=== PATIENT | male | born 1955 | race Caucasian/White ===

== ENCOUNTER → 2021-07-30 | Day surgery (SDC) | payer MEDICARE, OTHER ==
[~2021-07-30] VITALS: Ht 175.3 cm; Wt 75.3 kg
[~2021-07-30] MED LIST: CARBIDOPA-LEVO1 EAC1 PO; CARBIDOPA-LEVO1 EAC6 PO; CLOPIDOGREL75 MG PO; DONEPEZIL HCL10 MG PO; FIBER PO; GLIPIZIDE PO; GLIPIZIDE XL2.5 MG PO; HYDROCODON-ACE1 EAC1 PO; HYDROCODON-ACE1 EAC2 PO; JARDIANCE10 MG PO; JARDIANCE25 MG PO; LISINOPRIL5 MG PO; MELOXICAM15 MG PO; METFORMIN HCL500 M1 PO; MIRTAZAPINE15 MG PO; QUETIAPINE FUMA50 MG PO; REMERON15 MG PO; ROSUVASTATIN CA20 MG PO; ZESTRIL5 MG PO
== END | disposition home or self-care (01) ==
LOC: FAS 12:27
DX: E11.36 Type 2 diabetes mellitus with diabetic cataract (principal); H26.9 Unspecified cataract; G31.83 Neurocognitive disorder with Lewy bodies; F02.80 Dementia in other diseases classified elsewhere, unspecified severity, without behavioral disturbance, psychotic disturbance, mood disturbance, and anxiety; I10 Essential (primary) hypertension; E78.5 Hyperlipidemia, unspecified; G47.30 Sleep apnea, unspecified; Z86.73 Personal history of transient ischemic attack (TIA), and cerebral infarction without residual deficits; Z88.1 Allergy status to other antibiotic agents; Z79.02 Long term (current) use of antithrombotics/antiplatelets; Z79.84 Long term (current) use of oral hypoglycemic drugs; Z79.899 Other long term (current) drug therapy
CPT/HCPCS: J2001; J2370; J3370; V2632

== ENCOUNTER → 2021-09-03 | Day surgery (SDC) | payer MEDICARE, OTHER ==
[~2021-09-03] VITALS: Ht 175.3 cm; Wt 75.3 kg
[~2021-09-03] MED LIST changes: +[UNRECOGNIZED DRUG - OTHER]
== END | disposition home or self-care (01) ==
LOC: FAS 12:55
DX: E11.36 Type 2 diabetes mellitus with diabetic cataract (principal); H25.813 Combined forms of age-related cataract, bilateral; E11.65 Type 2 diabetes mellitus with hyperglycemia; I10 Essential (primary) hypertension; E78.00 Pure hypercholesterolemia, unspecified; M19.90 Unspecified osteoarthritis, unspecified site; Z79.84 Long term (current) use of oral hypoglycemic drugs; Z79.899 Other long term (current) drug therapy; Z86.73 Personal history of transient ischemic attack (TIA), and cerebral infarction without residual deficits; Z88.8 Allergy status to other drugs, medicaments and biological substances
CPT/HCPCS: V2632

== ENCOUNTER 2021-11-16 11:47 | Emergency (ER) | payer MEDICARE, OTHER ==
[2021-11-16 12:51] LABS: BASOPHIL 0.6 % (0-2); HCT 41.6 % (42.0-52.0); HGB 13.5 g/dl (13.2-18.0); LYMPHOCYTE 9.6 % (15-48); MCH 29.9 pg (25.0-31.0); MCHC 32.5 g/dL (32.0-36.0); MONOCYTE 7.7 % (0-12); NEUTROPHIL 80.5 % (41-80); NRBC 0; PLT 205 K/uL (150-400); RBC 4.52 M/uL (4.70-6.00); RDW 12.8 % (11.5-14.0); WBC 5.1 K/uL (4.0-10.5)
[2021-11-16 13:02] LABS: CREATININE 1.29 mg/dL (0.67-1.17); POTASSIUM 3.8 mmol/L (3.5-5.1)
== END 2021-11-16 14:49 | disposition home or self-care (01) ==
LOC: FER 11:47
PROVIDERS: Nurse Practitioner Family
DX: E11.649 Type 2 diabetes mellitus with hypoglycemia without coma (principal); I10 Essential (primary) hypertension; F03.90 Unspecified dementia, unspecified severity, without behavioral disturbance, psychotic disturbance, mood disturbance, and anxiety
CPT/HCPCS: 36415; 80048; 85025

== ENCOUNTER 2021-11-17 09:27 | Day surgery (SDCO) | payer MEDICARE, OTHER ==
[~2021-11-17] VITALS: Ht 172.7 cm; Wt 66.4 kg
[2021-11-17 11:38] LABS: BILIRUBIN NEGATIVE (NEGATIVE); BLOOD 2+ Ery/uL (NEGATIVE); CLARITY CLEAR (CLEAR); COLOR YELLOW (YELLOW); GLUCOSE (U) 3+ mg/dL (NORMAL); LEUKOCYTES NEGATIVE Leu/uL (NEGATIVE); NITRITE NEGATIVE (NEGATIVE); PROTEIN 1+ mg/dL (NEGATIVE)
[2021-11-17 11:43] LABS: AMPHETAMINES NEGATIVE (NEGATIVE); BARBITURATES NEGATIVE (NEGATIVE); ECSTASY (MDMA) NEGATIVE (NEGATIVE); MARIJUANA (THC) NEGATIVE (NEGATIVE); METHADONE NEGATIVE (NEGATIVE); OPIATES NEGATIVE (NEGATIVE); OXYCODONE NEGATIVE (NEGATIVE)
[2021-11-17 11:49] LABS: BASOPHIL 0.7 % (0-2); EOSINOPHIL 1.6 % (0-7); HCT 43.8 % (42.0-52.0); HGB 14.1 g/dl (13.2-18.0); LYMPHOCYTE 17.5 % (15-48); MCH 29.8 pg (25.0-31.0); MCHC 32.2 g/dL (32.0-36.0); MCV 92.6 fL (78.0-100.0); MONOCYTE 8.5 % (0-12); MPV 10.4 fL (6.0-9.5); NEUTROPHIL 71.2 % (41-80); NRBC 0; PLT 167 K/uL (150-400); RBC 4.73 M/uL (4.70-6.00); RDW 12.6 % (11.5-14.0); WBC 4.4 K/uL (4.0-10.5)
[2021-11-17 12:08] LABS: ALBUMIN 4.2 g/dL (3.4-5.0); ALKALINE PHOSHATASE 62 U/L (46-116); ALT 13 U/L (16-63); AST 16 U/L (15-37); BILIRUBIN - TOTAL 0.7 mg/dL (0.2-1.0); BUN 27 mg/dL (7-18); CHLORIDE 103 mmol/L (98-107); CO2 (BICARBONATE) 27 mmol/L (21-32); CREATININE 1.23 mg/dL (0.67-1.17); GLOBULIN (CALCULATION) 3.2 g/dL; GLUCOSE 99 mg/dL (74-106); POTASSIUM 3.7 mmol/L (3.5-5.1); TOTAL PROTEIN 7.4 g/dL (6.4-8.2)
[2021-11-17 12:19] LABS: SQUAMOUS EPITHELIAL CELLS RARE
[2021-11-17 12:31] LABS: ACETAMINOPHEN (TYLENOL) < 2.0 ug/mL (10.0-30.0)
[2021-11-17 12:36] LABS: CORONAVIRUS 2019 SARS-COV-2 NEGATIVE (NEGATIVE); INFLUENZA A NAA NEGATIVE (NEGATIVE)
[2021-11-17 13:17] LABS: LACTIC ACID 1.9 mmol/L (0.4-1.9)
[2021-11-18] MEDS ORDERED: CARBIDOPA-LEVO1 EAC6 PO (14:10)
[2021-11-18] MEDS ORDERED: MEMANTINE HCL5 MG PO (14:18)
[2021-11-18] MEDS ORDERED: HYDROCODON-ACE1 EAC2 PO (14:20)
[2021-11-19 06:14] LABS: BASOPHIL 0.6 % (0-2); EOSINOPHIL 1.9 % (0-7); HCT 34.9 % (42.0-52.0); HGB 11.4 g/dl (13.2-18.0); LYMPHOCYTE 19.8 % (15-48); MCH 29.5 pg (25.0-31.0); MCHC 32.7 g/dL (32.0-36.0); MCV 90.4 fL (78.0-100.0); MONOCYTE 10.7 % (0-12); NEUTROPHIL 66.1 % (41-80); NRBC 0; PLT 148 K/uL (150-400); RBC 3.86 M/uL (4.70-6.00); RDW 12.4 % (11.5-14.0); WBC 3.2 K/uL (4.0-10.5)
[2021-11-19 06:37] LABS: BUN/CREAT RATIO (CALC) 19.7 RATIO; CREATININE 1.37 mg/dL (0.67-1.17); POTASSIUM 3.7 mmol/L (3.5-5.1)
== END 2021-11-19 11:51 ==
LOC: FER 09:27 → FMS 17:44
PROVIDERS: Emergency Medicine; Hospitalist; ADMIT Internal Medicine
DX: G20 Parkinson's disease (principal); F02.80 Dementia in other diseases classified elsewhere, unspecified severity, without behavioral disturbance, psychotic disturbance, mood disturbance, and anxiety; E11.649 Type 2 diabetes mellitus with hypoglycemia without coma; G93.41 Metabolic encephalopathy; E86.0 Dehydration; N17.9 Acute kidney failure, unspecified; E11.9 Type 2 diabetes mellitus without complications; I10 Essential (primary) hypertension; G47.33 Obstructive sleep apnea (adult) (pediatric); M19.90 Unspecified osteoarthritis, unspecified site; E11.65 Type 2 diabetes mellitus with hyperglycemia; R32 Unspecified urinary incontinence; I25.10 Atherosclerotic heart disease of native coronary artery without angina pectoris; I25.2 Old myocardial infarction; E78.00 Pure hypercholesterolemia, unspecified; Z79.02 Long term (current) use of antithrombotics/antiplatelets; Z20.822 Contact with and (suspected) exposure to COVID-19; Z86.73 Personal history of transient ischemic attack (TIA), and cerebral infarction without residual deficits; Z91.81 History of falling; Z88.1 Allergy status to other antibiotic agents
CPT/HCPCS: 36415; 70450; 71250; 80048; 80053; 80305; 81001; 82140; 82962; 83036; 83605; 84145; 84484; 85025; 87088; 97162; 97530-GP; G0378; G0480; J1650; J2550; J3480; J7030; J7040; U0002